=== PATIENT | male | born 1950 | race Caucasian/White ===

== ENCOUNTER → 2018-08-09 | Outpatient (CLI) | payer MEDICARE, BC ==
[~2018-08-09] MED LIST: ACULAR LS 5 ML5 ML OP; ASPIRIN 32325 MG/TAB PO; BYSTOLIC2.5 MG PO; OCUFLOX 5 ML5 ML OP; PRED FORTE 1 ML1 ML OP
== END ==
LOC: COL.RAD 08:15
DX: Z13.6 Encounter for screening for cardiovascular disorders (principal); I70.0 Atherosclerosis of aorta; Q25.46 Tortuous aortic arch; Z87.891 Personal history of nicotine dependence

== ENCOUNTER 2018-11-04 17:38 | Inpatient (IN) | payer MEDICARE, BC ==
[~2018-11-04] VITALS: Ht 213.4 cm; Wt 76.7 kg
[2018-11-04] VITALS (120 sets, daily range): BP systolic 131–142; BP diastolic 74–79; PULSE 77–78; TEMP 98.9–99; O2SAT 89–99
[2018-11-04 19:25] LABS: BASO % 0.3 % (0.0-2.0); EOS # 0.1 (0.0-0.7); EOS % 0.7 % (0-4.0); GRAN # 8.4 (1.4-6.5); GRAN % 77.6 % (42.2-75.2); HEMATOCRIT 39.5 % (42.0-52.0); HEMOGLOBIN 14.2 g/dl (13.5-18.0); LYMPH # 1.4 (1.2-3.4); LYMPH % 12.5 % (20.0-51.0); MEAN CELL VOLUME 101 fl (80.0-100.0); MEAN CORPUSCULAR HEMOGLOBIN 36 pg (27.0-31.0); MEAN CORPUSCULAR HGB CONC 36 g/dl (33.0-37.0); MEAN PLATELET VOLUME 8.2 fl (7.4-10.4); MONO # 0.9 (0.1-0.6); MONO % 8.6 % (1.7-9.3); PLATELET COUNT 247 K/mm3 (130-400); RED BLOOD COUNT 3.93 M/mm3 (4.20-5.60); REDCELL DISTRIBUTION WIDTH-CV 11.6 % (11.5-14.5)
[2018-11-04 19:31] LABS: BILIRUBIN,TOTAL 0.4 mg/dL (0.0-1.0); CALCIUM 8.7 mg/dL (8.4-10.2); CREATININE, serum 0.94 mg/dL (0.66-1.25); MAGNESIUM 1.9 mg/dL (1.6-2.3); PHOSPHOROUS 3.2 mg/dL (2.5-4.5); POTASSIUM 3.2 mmol/L (3.4-5.0); TOTAL PROTEIN 6.6 gm/dL (6.4-8.2)
[2018-11-04 20:02] LABS: THYROID STIMULATING HORMONE 0.947 uIU/mL (0.465-4.680)
[2018-11-04 20:29] LABS: TROPONIN-I < 0.012 ng/mL (0.000-0.034)
[2018-11-04 21:05] LABS: ARTERIAL BLD GAS O2 SATURATION 93.4 % (92-100); ARTERIAL BLD GAS TCO2 CT 25.3; ARTERIAL BLOOD GAS BASE EXCESS 1.9 (-2-2); ARTERIAL BLOOD GAS HCO3 24.4 meq/L (22-26); ARTERIAL BLOOD GAS PCO2 32.1 mmHg (35-45); ARTERIAL BLOOD GAS PO2 69.4 mmHg (80-100)
[2018-11-04 21:17] LABS: COLLECTION METHOD CLEAN CATCH
[2018-11-04 21:33] LABS: PROTHROMBIN TIME 11.5 SECONDS (9.7-12.8)
[2018-11-04 21:34] LABS: PH 6 (5-8); SQUAMOUS EPITHELIAL None Seen /hpf; URINE APPEARANCE Clear; URINE BACTERIA None Seen /hpf; URINE BILIRUBIN Negative (NEGATIVE); URINE BLOOD Negative (NEGATIVE); URINE COLOR Straw; URINE GLUCOSE Negative (NEGATIVE); URINE KETONE Negative (NEGATIVE); URINE LEUKOCYTE ESTERASE Negative (NEGATIVE); URINE NITRATE Negative (NEGATIVE); URINE PROTEIN(semi-quant) Negative (NEGATIVE); URINE RBC 0-2 /hpf; URINE UROBILINOGEN Negative (NEGATIVE)
[2018-11-04 21:36] LABS: PARTIAL THROMBOPLASTIN TIME 30.7 SECONDS (26.0-37.0)
[2018-11-04 21:56] LABS: TRICYCLIC ANTIDEPRESS URINE NEGATIVE
[2018-11-04] MEDS ORDERED: NORVASC 10MG10 MG PO (22:49)
[2018-11-04] MEDS ORDERED: ZESTORETIC 25 M1 TAB PO (22:50)
[2018-11-04] MEDS ORDERED: ALEVE 220MG220 MG PO (22:51)
[2018-11-05] VITALS (369 sets, daily range): BP systolic 131–141; BP diastolic 64–78; PULSE 64–92; TEMP 97.6–98.8; O2SAT 89–100
[2018-11-05 01:47] LABS: CALCIUM 8.9 mg/dL (8.4-10.2); CREATININE, serum 0.75 mg/dL (0.66-1.25); POTASSIUM 4.2 mmol/L (3.4-5.0)
[2018-11-05 05:26] LABS: BASO % 0.3 % (0.0-2.0); EOS # 0.1 (0.0-0.7); EOS % 0.9 % (0-4.0); GRAN # 6.3 (1.4-6.5); GRAN % 71.3 % (42.2-75.2); HEMOGLOBIN 14.3 g/dl (13.5-18.0); LYMPH # 1.5 (1.2-3.4); LYMPH % 16.8 % (20.0-51.0); MEAN CELL VOLUME 101 fl (80.0-100.0); MEAN CORPUSCULAR HEMOGLOBIN 36 pg (27.0-31.0); MEAN CORPUSCULAR HGB CONC 36 g/dl (33.0-37.0); MEAN PLATELET VOLUME 8.4 fl (7.4-10.4); MONO # 0.9 (0.1-0.6); MONO % 10.5 % (1.7-9.3); PLATELET COUNT 237 K/mm3 (130-400); RED BLOOD COUNT 3.98 M/mm3 (4.20-5.60); REDCELL DISTRIBUTION WIDTH-CV 11.6 % (11.5-14.5)
[2018-11-05 05:39] LABS: ALBUMIN 3.9 gm/dL (3.5-5.0); BILIRUBIN,TOTAL 0.8 mg/dL (0.0-1.0); CALCIUM 9.1 mg/dL (8.4-10.2); CREATININE, serum 0.7 mg/dL (0.66-1.25); POTASSIUM 3.6 mmol/L (3.4-5.0); TOTAL PROTEIN 6.6 gm/dL (6.4-8.2)
[2018-11-05 14:20] LABS: FOLATE (FOLIC ACID) >20.0 ng/mL (7.0-31.4)
[2018-11-06 00:25] VITALS: BP 126/71; PULSE 87; TEMP 98.3
[2018-11-06 01:34] VITALS: BP 121/69; PULSE 85; TEMP 97.6
[2018-11-06 04:15] VITALS: BP 134/68; PULSE 68; TEMP 98.2
[2018-11-06 06:00] VITALS: BP 112/67; PULSE 84; TEMP 98.5
[2018-11-06 06:40] LABS: CALCIUM 8.9 mg/dL (8.4-10.2); CREATININE, serum 0.72 mg/dL (0.66-1.25); POTASSIUM 4.1 mmol/L (3.4-5.0)
[2018-11-06 07:45] VITALS: BP 137/72; PULSE 90; TEMP 98.3
[2018-11-06 10:59] VITALS: BP 126/69; PULSE 78; TEMP 98.1
[2018-11-06] MEDS ORDERED: B-121000 MCG PO (14:09)
[2018-11-06] MEDS ORDERED: ZESTRIL 20MG TA20 MG PO (14:09)
[2018-11-06] MEDS ORDERED: FOLIC ACID 11 MG/TA1 PO (14:09)
[2018-11-06] MEDS ORDERED: NATURE'S BLEND100 M2 PO (14:10)
[2018-11-08 12:07] LABS: VITAMIN B1 108 nmol/L (70-180)
== END 2018-11-06 17:09 | disposition home or self-care (01) | DRG 640 ==
LOC: IMCU 17:38 → ICU 18:23 → MEDICAL 11-05 10:45
PROVIDERS: Nurse Practitioner Family
DX: E87.1 Hypo-osmolality and hyponatremia (principal); J96.01 Acute respiratory failure with hypoxia; I10 Essential (primary) hypertension; J44.9 Chronic obstructive pulmonary disease, unspecified; F17.210 Nicotine dependence, cigarettes, uncomplicated; E87.6 Hypokalemia; F10.10 Alcohol abuse, uncomplicated
CPT/HCPCS: 99223-AI; 99232-AI; J1650; J3411; J7030

== ENCOUNTER 2023-09-17 18:56 | Observation (INO) | payer MEDICARE, OTHER ==
[~2023-09-17] VITALS: Ht 182.9 cm; Wt 70.0 kg
[~2023-09-17 18:56] MED LIST changes: +ALEVE 220MG220 MG PO; +ASPIRIN E.C. 8181 MG PO; +B-121000 MCG PO; +DESYREL 50MG50 MG PO; +FOLIC ACID 11 MG/TA1 PO; +IBU600 MG PO; +LIPITOR20 MG PO; +NATURE'S BLEND100 M2 PO; +NORVASC 10MG10 MG PO; +PERCOCET 325 MG1 TA2 PO; +RT Albuterol HFA MDI IH; +THE MEDICINE S200 M2 PO; +TYLENOL 500MG500 MG PO; +ULTRAM 50MG TAB50 MG PO; +VTAMINC250TA; +ZESTORETIC 25 M1 TAB PO; +ZESTRIL 20MG TA20 MG PO
[2023-09-17] MEDS ORDERED: PRINIVIL10 MG PO (21:21)
[2023-09-17] MEDS ORDERED: ZOLOFT 50MG50 MG PO (21:22)
[2023-09-17] MEDS ORDERED: MELATONIN5 M1 SL (21:22)
[2023-09-17] MEDS ORDERED: FOLIC ACID 11 MG/TA1 PO (21:25)
[2023-09-17] MEDS ORDERED: VTAMINC250TA (21:26)
[2023-09-17 21:28] LABS: HEMATOCRIT 39.3 % (42.0-52.0); HEMOGLOBIN 12.8 g/dl (13.5-18.0); MEAN CELL VOLUME 100 fl (80.0-100.0); MEAN CORPUSCULAR HEMOGLOBIN 33 pg (27-31); MEAN CORPUSCULAR HGB CONC 33 g/dl (33.0-37.0); MEAN PLATELET VOLUME 9.1 fl (7.4-10.4); PLATELET COUNT 264 K/mm3 (130-400); RED BLOOD COUNT 3.92 M/mm3 (4.20-5.60); REDCELL DISTRIBUTION WIDTH-CV 12.8 % (11.5-14.5)
[2023-09-17 21:40] LABS: BAND 3 % (0-10); LYMPHOCYTE 11 % (20.0-51.0); NEUTROPHILS 77 % (42.0-75.2)
[2023-09-17 21:41] LABS: HYPOCHROMIA 1+; PLATELET ESTIMATE NORMAL (NORMAL)
--- NOTE | 2023-09-17 21:45 | NUR ---
Patient arrived to room 325 via stretcher. Transferred to bed x4 assist. Skin assessment complete and WNL. Patient c/o pain to left chest/rib area. VS currently WNL. O2@1L/NC. Patient is not fully oriented but knows where he is and name. INT to left wrist flushes without difficulty. Unable to answer some questions. Patient states he wears glasses, hearing aids and dentures but did not bring them with him. Provided with a sandwich box. Ate 70%. MONTSERRAT Ratliff at bedside. Will monitor.
[2023-09-17 21:51] LABS: ALBUMIN 3.9 gm/dL (3.4-4.8); CALCIUM 9.1 mg/dL (8.4-10.2); CREATININE, serum 1.14 mg/dL (0.72-1.25); POTASSIUM 3.5 mmol/L (3.5-4.5); TOTAL PROTEIN 6.4 gm/dL (6.2-8.1)
[2023-09-17 21:53] VITALS: BP 149/65; PULSE 80; TEMP 98.5
[2023-09-17 22:00] LABS: BILIRUBIN,TOTAL 0.7 mg/dL (0.2-1.2)
--- NOTE | 2023-09-17 23:00 | NUR ---
Patient moaning out in pain. Has already taken tylenol-toradol given per dr order. Also placed lidocaine patch to right lower back.
[2023-09-18] VITALS (7 sets, daily range): BP systolic 116–177; BP diastolic 59–92; PULSE 66–77; TEMP 97.5–98.7
--- NOTE | 2023-09-18 00:29 | NUR ---
Patient resting eyes closed. No s/s of pain noted.
--- NOTE | 2023-09-18 01:12 | NUR ---
Repositioned in bed with two assist. O2 continues at 1L/NC. Will monitor.
--- NOTE | 2023-09-18 02:00 | NUR ---
Patient hollering out in pain. Received tylenol and toradol already with not much pain relief. Chambers given per dr order. Will monitor.
--- NOTE | 2023-09-18 03:00 | NUR ---
Patient attempted to void again at this time. Unable to. Bladder scanned- <130 currently. Will continue to monitonr.
--- NOTE | 2023-09-18 05:27 | NUR ---
Patient crying out in pain. This nurse to room-tried to give toradol IV per dr order but patient swatted at this nurse and states he doesnt want any of it. Wasted at this time. WIll continue to monitor.
[2023-09-18 05:44] LABS: CALCIUM 8.7 mg/dL (8.4-10.2); CREATININE, serum 1.25 mg/dL (0.72-1.25); POTASSIUM 3.5 mmol/L (3.5-4.5)
[2023-09-18 05:52] LABS: HEMOGLOBIN 11.6 g/dl (13.5-18.0); MEAN CELL VOLUME 98 fl (80.0-100.0); MEAN CORPUSCULAR HEMOGLOBIN 32 pg (27-31); MEAN CORPUSCULAR HGB CONC 33 g/dl (33.0-37.0); MEAN PLATELET VOLUME 9.4 fl (7.4-10.4); PLATELET COUNT 250 K/mm3 (130-400); RED BLOOD COUNT 3.59 M/mm3 (4.20-5.60); REDCELL DISTRIBUTION WIDTH-CV 12.7 % (11.5-14.5)
[2023-09-18 05:55] LABS: HEMATOCRIT 35.2 % (42.0-52.0)
[2023-09-18 06:12] LABS: EOSINOPHIL 3 % (0-4); HYPOCHROMIA 1+; LYMPHOCYTE 11 % (20.0-51.0); NEUTROPHILS 76 % (42.0-75.2); PLATELET ESTIMATE NORMAL (NORMAL)
--- NOTE | 2023-09-18 07:00 | NUR ---
PT RESTING IN CHAIR ALERT BUT NOT ORIENTED. PT CONFUSED, RAMBALING, AND UNABLE TO ANSWER QUESTIONS AT TIMES. PT UNABLE TO REPORT PAIN LEVEL, PT APPEAR COMFORTABLE. NO NEEDS AT THIS TIME. WILL CONTINUE TO MONITOR.
[2023-09-18 09:15] LABS: PH 5.5 (5.0-8.5); URINE APPEARANCE Clear (CLEAR/HAZY); URINE COLOR Yellow (YELLOW); URINE GLUCOSE Negative (NEGATIVE); URINE KETONE TRACE (NEGATIVE); URINE PROTEIN(semi-quant) 2+ (NEGATIVE); URINE UROBILINOGEN 0.2 E.U/dL (0.2-1.0)
[2023-09-18 09:16] LABS: SQUAMOUS EPITHELIAL 0-2 /hpf (0-10); URINE BLOOD Negative (NEGATIVE); URINE NITRATE Negative (NEGATIVE)
[2023-09-18 09:17] LABS: COLLECTION METHOD CLEAN CATCH
--- NOTE | 2023-09-18 10:15 | NUR ---
DR BRIDGES CALLED TO DISCUSS PTS REQUEST FOR NICOTINE PATCH, VERBAL ORDERS PROVIDED.
--- NOTE | 2023-09-18 15:11 | NUR ---
Cable Dispatcher met with patient and his , Theresa (ph#[phone]) to discuss discharge planning. Patient lives in [place] with his and sees Dr. Prince for primary care. Patient uses [facility] for medications. Patient has a cane, walker and wheelchair at home however Theresa stated he rarely uses them. Theresa advised he mostly uses the cane when he uses anything. Patient does not have home oxygen set up, however is currently requiring it. Theresa reported patient has been struggling with ADLS at home and that he just last week "graduated" from home hospice with [facility]. Theresa still has a private inquiry agent from [employer] come out once a week to help with a bath and shave. SW discussed PT/OT recommendation for SNF vs Home Health. SW also discussed with Theresa that at this time, patient is observation status and would not qualify to go to SNF under Medicare, meaning that he would either be private pay or they could pursue placement Medicaid pending. At this time, Theresa is not interested in applying for Medicaid or private paying. Theresa did remark she has the Medicaid application at home. At one point in the intake, Theresa commented that she sometimes feels she cannot manage patient at home. SW did encourage Theresa that if it gets to the point where patient cannot live at home anymore, applying for Medicaid would be something to consider as it is a payer source for LTC. Theresa verbalized understanding but is not ready to do this. Theresa is home with patient at all times except when she is at dialysis, Sunday//Sunday [id number]. FCO discussed adding on some private duty services to assist with supervision during these times. Theresa advised she may consider this but that he mainly sleeps during this time. FCO provided Medicare.gov list of agencies and Theresa selected [facility]. FCO faxed referral to Shawn at [facility]. Patient has DPOA-HC in EMR designating his , Theresa and daughter, Sharmaine. FCO contacted Sharmaine to give the above update. Sharmaine is in agreement with plan for home with HH. Discharge Plan: Home with HH
--- NOTE | 2023-09-18 19:43 | NUR ---
Patient sitting up in chair. Assessment complete. Alert but confused/possibly halucinating-sees bugs in the air and trying to catch them. Patient sounds moist but unable to clear secretions. Lungs are diminished with occasional exp wheezing noted. TELE reporting SR. VS stable. Currently on room air with adequate O2 saturations. Scheduled tylenol given. Patient rating pain 7/10 on pain scale to right side/flank-lidocaine patch also placed. INT to left wrist flushes without difficulty. Plan of care discussed for this shift to include meds/pain control/calling for questions/concerns. Verbalizes understanding. Call light in reach/bed alarm on. Will monitor.
--- NOTE | 2023-09-18 22:04 | NUR ---
Patient very confused this shift with hallucinations. Picking at air stating there are bugs flying around. Unable to do IS due to not comprehended technique. Did TCDB. Up to bedisde commode several times-very unsteady with walker/gait belt/1-2 assist.
--- NOTE | 2023-09-18 23:51 | NUR ---
Patient has been very restless at the beginning shift. Climbing in and out of bed setting off alarm as well as talking to people and things not present. Also picking at air. Patient finally resting with eyes closed-audible snoring. PCT informed to hold off on vitals until patient wakes. Will monitor.
--- NOTE | 2023-09-19 00:37 | NUR ---
Patient called out to use the bathroom. Assisted to bedside commode-two heavy assist with walker/gait belt. Voided without difficulty. VS taken. Toradol given for pain.
[2023-09-19 00:39] VITALS: BP 140/68; PULSE 72; TEMP 98
--- NOTE | 2023-09-19 00:46 | NUR ---
Spoke with healthcare administration internship pharmacist Claudy about both Motrin and Toradol being ordered at the same time. Okay to give both as ordered due to low dosing.
[2023-09-19 00:49] VITALS: BP_SYST 140
--- NOTE | 2023-09-19 05:52 | NUR ---
Patient had an uneventful night. Did not sleep much but was pleasent and talkative. Received toradol/motrin/tylneol for pain. Encouraged to cough/deep breath. Has a moist wet cough that is not productive. CUrrently resting in bed with no s/s of distress noted. Will monitor.
--- NOTE | 2023-09-19 06:10 | NUR ---
Patient is finally resting eyes closed/no s/s of distress noted. Instructed PCT to not wake patient as vitals were done at 0245.
[2023-09-19 06:11] VITALS: BP_SYST 140
[2023-09-19 08:30] VITALS: BP 119/59; PULSE 78; TEMP 97.6
[2023-09-19] MEDS ORDERED: BLUE-EMU LIDOC1 EACH TP (08:30)
[2023-09-19] MEDS ORDERED: TYLENOL 325MG325 MG PO ×2 (08:31)
[2023-09-19] MEDS ORDERED: ADVIL200 MG PO (08:31)
--- NOTE | 2023-09-19 08:35 | NUR ---
PT LAYING IN BED, ALERT, NOT ORIENTED AT ALL. VERY CONFUSED, HAVING HALLUCINATIONS. RATES PAIN 10/10 IN THE RIBS. LEGS ARE WEAK. ASSESSED AND GAVE MORNING MEDS. CALL LIGHT WITHIN REACH.
[2023-09-19 08:37] VITALS: BP_SYST 140
[2023-09-19] MEDS ORDERED: OXYGEN NASAL.CANN (09:36)
[2023-09-19 11:28] VITALS: BP 103/57; PULSE 85; TEMP 97.9
--- NOTE | 2023-09-19 13:20 | NUR ---
PT HAS DISCHARGE ORDERS. TOOK OUT IV. WENT OVER DISCHARGE PAPERWORK WITH PT AND . ESCORTED PT OUT WITH AND PCT.
--- NOTE | 2023-09-19 15:44 | NUR ---
Personal Service Representative was notified that patient is ready to be discharged today. Patient was assessed by RT and he will require home oxygen. FCO spoke with nursing and RT about concerns for patient's ability to safely manage the oxygen at home. FCO contacted patient's daughter, Sharmaine and reviewed the above concern. Sharmaine advised patient's , Theresa wears oxygen at night and already manages her oxygen set up at home so this was not a great concern to her. Sharmaine advised she still plans for patient to return home. FCO met with patient's , Theresa at bedside and she advised she uses [facility] so that is where SW can order patient's oxygen through. FCO asked Theresa if she still feels comfortable with discharge home based on additional oxygen needs. FCO offered private pay placement or Medicaid pending placement and Theresa stated she still prefers to take patient home. FCO contacted Shawn at [facility] who accepts referral. FCO faxed discharge orders. FCO then contacted [facility] and gave referral and order for home oxygen. Supplies were delivered to patient's room prior to discharge. Discharge Plan: Home with
[2023-09-20] MEDS ORDERED: ROXICODONE 55 MG/TAB (14:08)
[2023-09-24] MEDS ORDERED: TYLENOL 325MG325 MG PO (13:19)
== END 2023-09-19 13:23 | disposition home or self-care (01) ==
LOC: COL.ER 18:56 → SURG 20:46
PROVIDERS: Physician Assistant; ADMIT Internal Medicine
DX: J96.01 Acute respiratory failure with hypoxia (principal); S22.31XA Fracture of one rib, right side, initial encounter for closed fracture; I10 Essential (primary) hypertension; J44.9 Chronic obstructive pulmonary disease, unspecified; R29.6 Repeated falls; F03.918 Unspecified dementia, unspecified severity, with other behavioral disturbance; Z79.899 Other long term (current) drug therapy
CPT/HCPCS: G0378; J1885

== ENCOUNTER 2024-01-28 19:58 | Inpatient (IN) | payer MEDICARE ==
[~2024-01-28] VITALS: Ht 182.9 cm; Wt 65.9 kg
[~2024-01-28 19:58] MED LIST changes: +ADVIL200 MG PO; +BLUE-EMU LIDOC1 EACH TP; +MELATONIN5 M1 SL; +OXYGEN NASAL.CANN; +PRINIVIL10 MG PO; +ROXICODONE 55 MG/TAB; +TYLENOL 325MG325 MG PO; +VITAMIN C500 MG PO; +ZOLOFT 50MG50 MG PO
[2024-01-28] MEDS ORDERED: NS 1,000 ML IV ONE (20:15)
[2024-01-28 20:21] LABS: HEMOGLOBIN 12.6 g/dl (13.5-18.0); MEAN CELL VOLUME 96 fl (80.0-100.0); MEAN CORPUSCULAR HEMOGLOBIN 33 pg (27-31); MEAN CORPUSCULAR HGB CONC 34 g/dl (33.0-37.0); PLATELET COUNT 207 K/mm3 (130-400); RED BLOOD COUNT 3.85 M/mm3 (4.20-5.60); REDCELL DISTRIBUTION WIDTH-CV 12.8 % (11.5-14.5)
[2024-01-28 20:34] LABS: BAND 6 % (0-10); LYMPHOCYTE 3 % (20.0-51.0); NEUTROPHILS 79 % (42.0-75.2)
[2024-01-28 20:35] LABS: PLATELET ESTIMATE NORMAL (NORMAL)
[2024-01-28 20:36] LABS: ALBUMIN 3.4 gm/dL (3.4-4.8); BILIRUBIN,TOTAL 0.4 mg/dL (0.2-1.2); CALCIUM 8.8 mg/dL (8.4-10.2); CREATININE, serum 1.17 mg/dL (0.72-1.25); POTASSIUM 3.6 mmol/L (3.5-4.5); TOTAL PROTEIN 6.3 gm/dL (6.2-8.1)
[2024-01-28] MEDS ORDERED: cefTRIAXone 2 G in Water For Injection,Sterile 20 ML IV ONE (21:30)
[2024-01-28] MEDS ORDERED: Ondansetron 4 MG/2 ML VIAL IV PRN (22:00)
[2024-01-28] MEDS ORDERED: Acetaminophen 325 MG TAB PO PRN (22:00)
[2024-01-28] MEDS ORDERED: Albuterol/Ipratropium 3 MG-0.5 MG/3 ML Neb Soln IH PRN (22:00)
[2024-01-28] MEDS ORDERED: Oseltamivir 30 MG CAP PO SCH (22:04)
[2024-01-28] MEDS ORDERED: Azithromycin 500 MG in NS 250 ML IV SCH (22:27)
[2024-01-28] MEDS ORDERED: NS 1,000 ML IV SCH (22:45)
[2024-01-28 22:49] VITALS: BP 128/79; PULSE 66; TEMP 98.2
--- NOTE | 2024-01-28 23:15 | NUR ---
PT ARRIVED TO ROOM 326 FROM ED AROUND 2314 FOR PNEUMONITIS & FLU A, AND WAS PLACED ON DROPLET PRECAUTIONS. TRANSFERED PT TO BED VIA SLIDEBOARD. PT ALERT BUT CONFUSED, WAS REPORTED PT IS CONFUSED AT BASELINE. VSS ON 3L/NC. INT TO LEFT AC PATENT & IVF STARTED PER MAR. PT DENYING PAIN OR N/V. STATES HE DOES HAVE SOME SOA, BUT REPORTS O2 & SITTING UP HELP A LOT. PT DENYING FURTHER NEEDS. FALL PRECAUTIONS IN PLACE & CALL LIGHT IN REACH. COMPLETED MED REC & INTAKE MUCH POSSIBLE, PT IS POOR HISTORIAN. PT STATES HIS WILL BE HERE TOMMORROW & WILL BE ABLE TO ANSWER SOME QUESTIONS
[2024-01-28 23:49] VITALS: BP_SYST 128
[2024-01-29] VITALS (12 sets, daily range): BP systolic 117–165; BP diastolic 55–70; PULSE 63–74; TEMP 98–99
--- NOTE | 2024-01-29 01:36 | NUR ---
pt sitting up in recliner watching tv. pt reports not being able to sleep. denying further needs. call light in reach
--- NOTE | 2024-01-29 06:15 | NUR ---
PT RESTING IN BED THIS MORNING WITH UNLABORED RESP. DENIES NEEDS. FALL PRECAUTIONS IN PLACE & CALL LIGHT IN REACH
[2024-01-29 08:04] LABS: BASO % 0.1 % (0.0-2.0); GRAN % 75.1 % (42.2-75.2); HEMOGLOBIN 11.6 g/dl (13.5-18.0); LYMPH # 1.4 K/mm3 (1.2-3.4); MEAN CELL VOLUME 97 fl (80.0-100.0); MEAN CORPUSCULAR HEMOGLOBIN 32 pg (27-31); MEAN CORPUSCULAR HGB CONC 33 g/dl (33.0-37.0); MEAN PLATELET VOLUME 9.9 fl (7.4-10.4); MONO # 0.9 K/mm3 (0.1-0.6); MONO % 9.5 % (1.7-9.3); PLATELET COUNT 181 K/mm3 (130-400); RED BLOOD COUNT 3.61 M/mm3 (4.20-5.60); REDCELL DISTRIBUTION WIDTH-CV 12.7 % (11.5-14.5)
[2024-01-29 08:10] LABS: HEMATOCRIT 35.1 % (42.0-52.0)
[2024-01-29 08:52] LABS: CALCIUM 8.1 mg/dL (8.4-10.2); CREATININE, serum 0.81 mg/dL (0.72-1.25); MAGNESIUM 1.9 mg/dL (1.6-2.6)
[2024-01-29] MEDS ORDERED: Doxycycline Monohydrate 100 MG CAP PO SCH (09:00)
[2024-01-29] MEDS ORDERED: Sennosides/Docusate 8.6-50 MG TAB PO SCH (09:00)
[2024-01-29 09:01] LABS: PH 5.5 (5.0-8.5); URINE APPEARANCE CLEAR (CLEAR/HAZY); URINE BLOOD TRACE (NEGATIVE); URINE COLOR YELLOW (YELLOW); URINE GLUCOSE NEGATIVE (NEGATIVE); URINE KETONE TRACE (NEGATIVE); URINE NITRATE NEGATIVE (NEGATIVE); URINE PROTEIN(semi-quant) TRACE (NEGATIVE)
[2024-01-29 09:02] LABS: POTASSIUM 2.9 mmol/L (3.5-4.5)
[2024-01-29 09:04] LABS: COLLECTION METHOD CLEAN CATCH
--- NOTE | 2024-01-29 09:08 | NUR ---
CRITICAL POTASSIUM OF 2.[address] ARAIZA, VERBAL ORDERS FOR POTASSIUM PROTOCOL.
[2024-01-29 09:12] LABS: THYROID STIMULATING HORMONE 0.258 uIU/mL (0.350-4.940)
[2024-01-29] MEDS ORDERED: *Potassium Replacement Protocol MC SCH (09:15)
[2024-01-29] MEDS ORDERED: Potassium Bicarbonate/Citrate 20 MEQ Effervescent TAB PO SCH (09:15)
--- NOTE | 2024-01-29 10:00 | NUR ---
PT RESTING IN BED A/O X3, LIMITED MOVEMENT IN BED, USING URINAL IN BED DUE TO WEAKNESS. THIS NURSE ENCOURAGING FLUIDS, PT ON 3L O2 NC, DENTURES OBTAINED FROM FAMILY. WET COUGH BUT NO SPUTUM OBTAINED. WILL CONTINUE TO MONITOR.
--- NOTE | 2024-01-29 13:00 | NUR ---
lithopone mill worker completed intake over the phone with , Sheri [phone] due to pt having isolation orders and dementia at baseline with worsening signs. SW spoke with Sheri who confirms pt and her live together in [place]. She states pt sees Dr. Prince and obtains medications from [facility] with no difficulties. She states she is also DPOA-HC and SW verified this is on file. She informed SW she has private duty come into the home once a week to groom pt and shower him. She reports pt has a cane, regular walker, and FWW but does not utilize them. SW discussed PT/OT reccomendations of HH vs SNF. informs SW that pt has had both HH and SNF. She states patient was "angry, wanted to be home, and was scared since he doesn't understand." SW verbalized understanding regarding the concerns. states they have had [facility] twice and would be more apt to have them. SW inquired if she could send the information to [facility] and she confirmed. She inquired about discharge timeline and SW advised the main [facility] did not confirm any discharge intention. FCO faxed referral to [place] with [facility]. SW informed FCO Herman pt still needs Medicare.gov list presented per regulation. Discharge Plan: Home with [facility] pending
--- NOTE | 2024-01-29 14:34 | NUR ---
garage worker provided Medicare.gov list of agencies to KEENAN [place]ley to provide to pt. SW noted patient's chose [facility] as they have utilized them before. Discharge Plan: Home with [facility] tbd
--- NOTE | 2024-01-29 20:00 | NUR ---
PT LAYING IN BED WATCHING TV. A&O X2. VSS ON 1L/NC. PT DENYING PAIN OR N/V. NS @ 75 INFUSING TO LEFT FOREARM. PT HAD SMALL LOOSE BM. PT DENIES OTHER NEEDS AT THIS TIME. FALL PRECAUTIONS IN PLACE & CALL LIGHT IN REACH
[2024-01-29] MEDS ORDERED: cefTRIAXone 1 G in Water For Injection,Sterile 10 ML IV SCH (21:00)
[2024-01-30] VITALS (13 sets, daily range): BP systolic 139–167; BP diastolic 62–80; PULSE 62–76; TEMP 97.8–99
--- NOTE | 2024-01-30 01:40 | NUR ---
PT RIPPING OFF TELE & IV TO LEFT FOREARM. CARBON CAPTURE POWER PLANT OPERATOR PLACED NEW IV TO RIGHT FOREARM
--- NOTE | 2024-01-30 04:45 | NUR ---
PT UP TO BSC WITH X2 ASSIST & HAD MEDIUM WATERY BM. PT BACK IN BED & HAS NOT SLEPT THIS SHIFT. DENIES PAIN EXCEPT "BACK PAIN THAT IS ALWAYS THERE", DENIES TYLENOL. DENIES FURTHER NEEDS. CALL LIGHT IN REACH & FALL PRECAUTIONS IN PLACE
--- NOTE | 2024-01-30 06:31 | NUR ---
PT NOW RESTING IN BED WITH UNLABORED RESP. GIVEN PRN TYLENOL FOR BACK PAIN. PT DENYING OTHER NEEDS. FALL PRECAUTIONS IN PLACE & CALL LIGHT IN REACH
[2024-01-30 06:47] LABS: BASO % 0.1 % (0.0-2.0); GRAN # 7.3 K/mm3 (1.4-6.5); GRAN % 77.9 % (42.2-75.2); HEMOGLOBIN 11.1 g/dl (13.5-18.0); LYMPH # 1.4 K/mm3 (1.2-3.4); LYMPH % 14.7 % (20.0-51.0); MEAN CELL VOLUME 95 fl (80.0-100.0); MEAN CORPUSCULAR HEMOGLOBIN 32 pg (27-31); MEAN CORPUSCULAR HGB CONC 34 g/dl (33.0-37.0); MEAN PLATELET VOLUME 9.7 fl (7.4-10.4); MONO # 0.7 K/mm3 (0.1-0.6); PLATELET COUNT 179 K/mm3 (130-400); RED BLOOD COUNT 3.44 M/mm3 (4.20-5.60); REDCELL DISTRIBUTION WIDTH-CV 12.5 % (11.5-14.5)
[2024-01-30 06:49] LABS: HEMATOCRIT 32.6 % (42.0-52.0)
[2024-01-30 07:22] LABS: CALCIUM 7.9 mg/dL (8.4-10.2); CREATININE, serum 0.72 mg/dL (0.72-1.25)
[2024-01-30 07:27] LABS: POTASSIUM 2.9 mmol/L (3.5-4.5)
--- NOTE | 2024-01-30 07:32 | NUR ---
CRITICAL POTASSIUM OF 2.9 REPORTED TO CORY MARIANO. NO NEW ORDERS. WILL FOLLOW POTASSIUM PROTOCOL.
[2024-01-30] MEDS ORDERED: Potassium Bicarbonate/Citrate 20 MEQ Effervescent TAB PO SCH (07:45)
[2024-01-30] MEDS ORDERED: NS & 40 mEq KCl 1,000 ML IV SCH (07:45)
--- NOTE | 2024-01-30 08:50 | NUR ---
PT RESTING IN BED WITH NO PAIN AT THIS TIME. PT USING URINAL IN BED, A/O X2, AND EATING BREAKFAST. WET COUGH STILL PRESENT. NO NEEDS AT THIS TIME. WILL CONTINUE TO MONITOR.
--- NOTE | 2024-01-30 13:16 | NUR ---
life skills worker secure emailed updates to [facility]. Discharge plan: Home with [facility]
--- NOTE | 2024-01-30 17:00 | NUR ---
sheet metal worker supervisor met with the patient's nurse whom reported patient and patient's wanted to know the plan for discharge. FCO expressed the expressed yesterday to FCO [place]ida patient wanted to return home with home health. FCO contacted patient's , Theresa, to confirm the discharge plan. Theresa reports the plan is for patient to return home when medically ready with home health through [facility]. FCO notified patient's nurse. Discharge plan: Home with [facility]
--- NOTE | 2024-01-30 20:00 | NUR ---
PT LAYING IN BED WATCHING TV. A&O X3. ON 2L/NC. GIVEN PRN TYLENOL FOR CHRONIC BACK PAIN. INT TO RIGHT FOREARM PATENT. PT DENIES NEEDS AT THIS TIME. FALL PRECAUTIONS IN PLACE & CALL LIGHT IN REACH
[2024-01-31] VITALS (9 sets, daily range): BP systolic 158–178; BP diastolic 66–95; PULSE 61–83; TEMP 97.5–98.5
--- NOTE | 2024-01-31 06:00 | NUR ---
PT LAYING IN BED WATCHING TV. DENIES NEEDS THIS MORNING. CALL LIGHT IN REACH & FALL PRECAUTIONS IN PLACE
[2024-01-31 06:44] LABS: BASO % 0.1 % (0.0-2.0); EOS % 0.3 % (0.0-4.0); GRAN # 4.2 K/mm3 (1.4-6.5); HEMOGLOBIN 11.6 g/dl (13.5-18.0); LYMPH # 2.2 K/mm3 (1.2-3.4); LYMPH % 30.8 % (20.0-51.0); MEAN CELL VOLUME 94 fl (80.0-100.0); MEAN CORPUSCULAR HEMOGLOBIN 32 pg (27-31); MEAN CORPUSCULAR HGB CONC 34 g/dl (33.0-37.0); MEAN PLATELET VOLUME 9.6 fl (7.4-10.4); MONO # 0.6 K/mm3 (0.1-0.6); MONO % 8.5 % (1.7-9.3); PLATELET COUNT 202 K/mm3 (130-400); RED BLOOD COUNT 3.59 M/mm3 (4.20-5.60); REDCELL DISTRIBUTION WIDTH-CV 12.3 % (11.5-14.5)
[2024-01-31 06:55] LABS: HEMATOCRIT 33.8 % (42.0-52.0)
[2024-01-31 07:14] LABS: CALCIUM 8.4 mg/dL (8.4-10.2); CREATININE, serum 0.69 mg/dL (0.72-1.25); POTASSIUM 3.2 mmol/L (3.5-4.5)
--- NOTE | 2024-01-31 07:54 | NUR ---
PATIENT'S BLOOD PRESSURE ELEVATED THIS MORNING, 171/78. DR ROCHA NOTIFIED.
[2024-01-31] MEDS ORDERED: Potassium Bicarbonate/Citrate 20 MEQ Effervescent TAB PO SCH (08:00)
--- NOTE | 2024-01-31 08:00 | NUR ---
Pt sitting up in bed wiht breakfast tray. Pt is oriented to self and month. Pt reoriented. HR and SpO2 are stable. BP is elevated with systolic in 170s. Pt is tachypneic and shallow breathing. Rhonchi in Right lung (all lobes) and Left Lower lobe. Expiratory wheezing in left upper lobe. Heart sounds are normal. Palpable pulses in all 4 extremities. Abd is rounded and soft with audible bowel sounds. Pt denies pain, headache, n/v. Administered AM meds as per EMAR. Started K replacement as per K Protocol. Pt has call light in reach and bed alarm is on.
--- NOTE | 2024-01-31 09:35 | NUR ---
PATIENT ALERT AND ORIENTED X2. VSS WITH THE EXCEPTION OF BLOOD PRESSURE, WHICH IS ELEVATED. PATIENT DENIES ANY PAIN. IV TO RIGHT FA INT AND FLUSHES WELL. PATIENT ON 2L NC. PATIENT EATING BREAKFAST. NO FURTHER NEEDS. CALL LIGHT IN REACH. BED ALARM ON.
--- NOTE | 2024-01-31 10:15 | NUR ---
Pt sitting in chair. Administered K replacement in orange juice (second dose of K protocol). Pt has chair alarm on and call mcclelland in reach.
--- NOTE | 2024-01-31 10:50 | NUR ---
Pt had assisted fall. Provider, charge nurse, and Lug Loader notified. Pt was assessed and VS taken and stable. Pt did not hit head. ERS and Falls report was completed.
--- NOTE | 2024-01-31 11:59 | NUR ---
Pt sitting up in bed with lunch tray. Administered meds per EMAR. Bed alarm on and falls precautions in place.
[2024-01-31] MEDS ORDERED: Lisinopril 10 MG TAB PO SCH (12:00)
[2024-01-31] MEDS ORDERED: QUEtiapine 25 MG TAB PO PRN (13:30)
--- NOTE | 2024-01-31 13:53 | NUR ---
Pt continued to attempt to get out of bed and fidgeting with oxygen tubeing, gown, and tele box. Called provider for anti-anxiety medication to help calm Pt. Administered as per EMAR.
--- NOTE | 2024-01-31 15:54 | NUR ---
service worker was notified by PT that patient has been unstable with their transfers and would recommend SNF. Dr. Morrissey met with social service liaison and expressed patient has had a fall and she would recommend SNF. SW contacted patient's , Theresa, and explained the recommendation. Theresa asked if home health would be able to assist with the falls. FCO explained home health would only be coming in the home about two or three days a week for about an hour unless the family private pays for additional care. Theresa expressed she would be unable to care for patient at this time so it would be best to do SNF. SW provided the options from Medicare.gov via telephone. Theresa expressed to send to all three in [facility], [facility] and [facility]. Theresa expressed patient has been at [facility] before and that would be the preference. FCO secure emailed the referral to all three agencies listed above. FCO was notified by [facility] that they are not in network with [employer] and patient would need to pay 50% and [employer] would pay the other 50%. FCO was notified that [facility] can accept patient pending authorization from patient's insurance. SW submitted authorization with [facility]. FCO notified patient's regarding [facility] able to accept pending authorization. Theresa understood. Discharge plan: SNF- [facility]- pending insurance authorization
--- NOTE | 2024-01-31 18:04 | NUR ---
Pt confused. Tried to reorient. Pt reported he had to go to bathroom. Provided Pt with urinal. Pt wetted bed with urine and had 200cc in urinal. Complete bed change and parital bath completed. Pt laying in bed. Bed alarm is on, call mcclelland in reach.
[2024-01-31] MEDS ORDERED: OLANZapine 5 MG,Water For Injection,Sterile 1 ML IM PRN (19:00)
--- NOTE | 2024-01-31 19:25 | NUR ---
PT RESTLESS, CONFUSED, HAS LEGS HANGING OVER SIDE OF BED. HS MEDS GIVEN, ZYPREXA 5MG IM RT DELTOID D/T AGITATION. RESTARTED INT TO RFA, PREVIOUS RFA SITE WITH SWELLING, DC'D, ANGIOCATH INTACT. BED ALARM ON.
--- NOTE | 2024-01-31 20:52 | NUR ---
LINENS CHANGED. PT CONFUSED, STILL AGITATED.
--- NOTE | 2024-01-31 23:33 | NUR ---
PT REMAINS RESTLESS, HAS LEGS HANGING OVER SIDE OF BED. ZYPREXA 5MG IM GIVEN NOW.
[2024-02-01] VITALS (8 sets, daily range): BP systolic 100–170; BP diastolic 62–91; PULSE 71–88; TEMP 97.8–98
--- NOTE | 2024-02-01 03:17 | NUR ---
PT AWAKE, AGITATED, TRYING TO GET OUT OF BED. LINENS AND CHUX CHANGED. ZYPREXA 5MG IM RVG GIVEN.
[2024-02-01 06:41] LABS: CREATININE, serum 0.77 mg/dL (0.72-1.25); POTASSIUM 3.9 mmol/L (3.5-4.5)
[2024-02-01 06:54] LABS: MAGNESIUM 2.2 mg/dL (1.6-2.6)
[2024-02-01] MEDS ORDERED: Potassium Bicarbonate/Citrate 20 MEQ Effervescent TAB PO ONE (07:30)
--- NOTE | 2024-02-01 09:01 | NUR ---
PT RESTING IN BED WITH EYES CLOSED, PT RELUCTANT TO WAKE UP STATING "JUST LEAVE ME ALONE". WATER SPONGE PRODIDED AND WET COUGH PERSISTING. VITALS STABLE. WILL CONTINUE TO MONITOR.
--- NOTE | 2024-02-01 09:27 | NUR ---
DR. ROCHA UPDATED ON PT STATUS. NO NEW ORDERS AT THIS TIME.
[2024-02-01] MEDS ORDERED: TAMIFLU30 MG PO (11:45)
[2024-02-01] MEDS ORDERED: CEFTIN500 MG PO (11:47)
[2024-02-01] MEDS ORDERED: SEROQUEL 2525 MG/TAB PO (11:51)
--- NOTE | 2024-02-01 12:01 | NUR ---
PT REMAINS RESTING IN BED WITH EYES CLOSED, VITALS STABLE, WAKES TO VERBAL STIMILI. WILL CONTINUE TO MONITOR. PLANS TO DISCHARGE TODAY.
--- NOTE | 2024-02-01 12:49 | NUR ---
FCO reviewed [employer] access and verified patient has approval from [facility] for SNF. FCO notified Mike at [facility]. hospice social worker was notified patient is medically cleared for discharge. SW was notified by nursing that patient was agitated last night and was given several doses of Zyprexa. SW notified [facility] of this and provided updates to determine if they would be able to accept today. SW was notified that [facility] is able to accept. SW was notified [facility] cherry picker operator patient today at 1 pm. FCO notified patient's nurse, Dr. Morrissey and patient's . Patient was sleeping and hard to wake, social sciences research scientist reviewed the important message from Medicare with patient's , Theresa. Theresa understood and provided verbal consent. SW made a copy, placed original in chart and provided copy to patient. FCO secure emailed discharge orders to [facility]. FCO was notified patient would be picked up by [facility] at 12:30 pm instead of 1 pm. FCO met with patient along with the nurse and Theresa, patient's via telephone. Patient was able to be woken up. FCO explained patient would be going to [facility] to get some strength back before he is able to return home. Theresa expressed she would be able to come visit him at [facility] once she was well enough to leave her home. FCO ensured patient understood what Theresa stated. Discharge plan: [facility] - SNF
--- NOTE | 2024-02-01 12:57 | NUR ---
PT DIFICULT TO WAKE WITH STIMULI, PT ASSISTED TO WHEELCHAIR, DISCHARGE PAPERWORK PROVIDED TO TRANSFER NURSE, REPORT CALLED TO TRUE RN AT [facility]. NO QUESTIONS AT THIS TIME. IV REMOVED.
== END 2024-02-01 12:50 | DRG 193 ==
LOC: COL.ER 19:58 → SURG 21:59
PROVIDERS: Family Medicine; Internal Medicine; Physician Assistant; ADMIT Internal Medicine
DX: J10.08 Influenza due to other identified influenza virus with other specified pneumonia (principal); J96.01 Acute respiratory failure with hypoxia; F03.911 Unspecified dementia, unspecified severity, with agitation; J44.9 Chronic obstructive pulmonary disease, unspecified; I10 Essential (primary) hypertension; F17.210 Nicotine dependence, cigarettes, uncomplicated; Z66 Do not resuscitate; J12.89 Other viral pneumonia; R29.6 Repeated falls; E87.6 Hypokalemia; F32.A Depression, unspecified; E78.5 Hyperlipidemia, unspecified; Z20.822 Contact with and (suspected) exposure to COVID-19; Z79.82 Long term (current) use of aspirin; Z79.899 Other long term (current) drug therapy; Z99.81 Dependence on supplemental oxygen
CPT/HCPCS: J0456; J0696; J1650; J3475; J3480; J7030; J7050

== ENCOUNTER 2024-07-01 23:36 | Observation (INO) | payer MEDICARE ==
[~2024-07-01] VITALS: Ht 182.9 cm; Wt 75.0 kg
[~2024-07-01 23:36] MED LIST changes: +CEFTIN500 MG PO; +SEROQUEL 2525 MG/TAB PO; +TAMIFLU30 MG PO
[2024-07-02] LABS: BASO % 0.2 % (0.0-2.0); EOS # 0.1 K/mm3 (0.0-0.7); EOS % 0.5 % (0.0-4.0); GRAN # 7.2 K/mm3 (1.4-6.5); HEMATOCRIT 38.5 % (42.0-52.0); HEMOGLOBIN 12.8 g/dl (13.5-18.0); LYMPH # 2.2 K/mm3 (1.2-3.4); LYMPH % 20.9 % (20.0-51.0); MEAN CELL VOLUME 98 fl (80.0-100.0); MEAN CORPUSCULAR HEMOGLOBIN 33 pg (27-31); MEAN CORPUSCULAR HGB CONC 33 g/dl (33.0-37.0); MEAN PLATELET VOLUME 9.4 fl (7.4-10.4); MONO # 1.1 K/mm3 (0.1-0.6); MONO % 10.2 % (1.7-9.3); PLATELET COUNT 240 K/mm3 (130-400); RED BLOOD COUNT 3.94 M/mm3 (4.20-5.60); REDCELL DISTRIBUTION WIDTH-CV 12.7 % (11.5-14.5)
[2024-07-02 00:12] LABS: ALBUMIN 3.9 g/dL (3.4-4.8); BILIRUBIN,TOTAL 0.7 mg/dL (0.2-1.2); CALCIUM 9.2 mg/dL (8.4-10.2); CREATININE, serum 1.02 mg/dL (0.72-1.25); TOTAL PROTEIN 6.5 g/dl (6.2-8.1)
[2024-07-02 00:25] LABS: TROPONIN-I 0.102 ng/mL (0.00-0.033)
[2024-07-02 00:54] LABS: URINE APPEARANCE CLEAR (CLEAR/HAZY); URINE BLOOD NEGATIVE (NEGATIVE); URINE COLOR YELLOW (YELLOW); URINE GLUCOSE NEGATIVE (NEGATIVE); URINE KETONE NEGATIVE (NEGATIVE); URINE NITRATE NEGATIVE (NEGATIVE); URINE PROTEIN(semi-quant) NEGATIVE (NEGATIVE)
[2024-07-02 01:07] LABS: COLLECTION METHOD CATHETER
[2024-07-02] MEDS ORDERED: Docusate Sodium 100 MG CAP PO PRN (01:15)
[2024-07-02] MEDS ORDERED: Acetaminophen 325 MG TAB PO PRN (01:15)
[2024-07-02] MEDS ORDERED: Ondansetron 4 MG/2 ML VIAL IV PRN (01:15)
[2024-07-02] MEDS ORDERED: Polyethylene Glycol 3350 17 GM PDS PO PRN (01:15)
--- NOTE | 2024-07-02 01:25 | NUR ---
Report recieved from KEENAN Damico from ED at this time. All questions answered at this time.
[2024-07-02 01:45] VITALS: BP 120/84; PULSE 83; TEMP 97.3
[2024-07-02] MEDS ORDERED: OLANZapine 5 MG,Water For Injection,Sterile 1 ML IM ONE (01:45)
[2024-07-02 02:00] VITALS: BP 120/84; PULSE 83
--- NOTE | 2024-07-02 02:30 | NUR ---
Patient arrived to room 354 at 0135. When transferring patient from ED bed to medical bed, patient became aggitated and attempted to try and punch staff, pull on thomas catheter, and try and get out of bed. Assessment complete. IV flushes easliy without complications. Hospitalist Yves Potter NP contacted for patient being combative. Recieved orders for 5mg Zyprexa IM once. Hospitalist Yves Potter NP at bedside about 0150 and gave verbal order for soft restraints for about 30 minutes until Zyprexa takes effect. Sitter at bedside for from 0140 until 0230. Soft restraints removed at 0230. Patient resting with eyes closed. Respirations even and unlabored. No signs of pain or distress. Attempted to complete Intake and MAR, unable to complete due to confusion and disorientation. Call light and personal items in reach. Bed in low position and bed alarm on. Room close to nurses station.
--- NOTE | 2024-07-02 05:30 | NUR ---
Patient resting in bed with eyes closed. Respirations even and unlaborded. No signs of pain or distress at this time. Call light in reach. Bed in low position and bed alarm on.
--- NOTE | 2024-07-02 08:00 | NUR ---
PT LAYING IN BED UPON ENTERING. ASSESSMENT DONE TO THE BEST OF THIS NURSES ABILITY. PT ALERT TO TOUCH BUT NOT OPENING EYES. PT NONVERBAL SO THIS NURSE UNABLE TO ASSESS ORIENTATION. INT TO LEFT FOREARM PATENT. PT HAS NO OBVIOUS SIGNS OF DISCOMFORT. ARAUZ PATENT WITHOUT ISSUES. PT FLAILING ARMS WHEN TOUCHED. PT HAS NO OBVIOUS NEEDS AT THIS TIME. BED IN LOWEST POSITION, CALL LIGHT IN REACH, BED ALARM ON
[2024-07-02] MEDS ORDERED: QUEtiapine 25 MG TAB PO PRN (10:15)
[2024-07-02 11:21] VITALS: BP 114/70; PULSE 68; TEMP 98.5
[2024-07-02 11:22] LABS: ANION GAP 11 mmol/L (7-16); BLOOD UREA NITROGEN 15 mg/dL (8-26); CHLORIDE 109 mEq/L (98-107); CREATININE, serum 0.86 mg/dL (0.72-1.25); GLUCOSE 92 mg/dL (70-99); POTASSIUM 3.7 mEq/L (3.5-4.5); SODIUM 141 mEq/L (136-145)
[2024-07-02 11:35] LABS: TROPONIN-I < 0.010 ng/mL (0.00-0.033)
--- NOTE | 2024-07-02 15:16 | NUR ---
Plug Assembler contacted patient's , Sheri (ph#[phone]) to discuss discharge planning. Patient lives in [place] with his and his 94 year old mother in law, Kacey. Sheri advised they have a home in [place] they are looking to put on the market and they are currently living in a rental here in [place]. Patient sees Dr. Prince for primary care. Sheri stated both she and patient have had declining health as of late. Sheri gets dialysis three times a week. Per Sheri, patient has had multiple falls and difficulty with ADLS. Theresa stated they have a hired napper tender that helps with bathing and Sheri helps with dressing. Sheri stated she is open to placement options as she agrees patient is not safe to return home at this time. FCO explained to Sheri that based on patient's behaviors (attempting to hit staff, requiring soft restraints) he may need geripsych prior to residential placement. Sheri is agreeable to this and understands these facilities are out of town. Sheri would prefer the [facility] if possible. Sheri advised they are not able to private pay for residential placement after geripsych and is agreeable to work on a medicaid application. FCO contacted Yandel, Financial Counselor to request assistance with a Medicaid application. FCO also contacted KEENAN Ceron-CM at Dr. Prince's office who advised they have been discussing Medicaid and residential placement with patient's , Sheri but no referrals had been sent at this time. FCO [facility]ida faxed referrals to area [facility] including [facility], [facility], [facility], [facility], [facility], [facility], [facility], [facility], [facility], [facility], [facility], and [facility]. FCO received a phone call from Philly at [facility] who advised they cannot take [employer]. Discharge Plan: [facility]
--- NOTE | 2024-07-02 15:37 | NUR ---
Juan from [facility] called and requested copy of DPOA-HC. If they can accept, they will request a letter from Hospitalist that patient cannot make decisions and DPOA will need to be enacted.
--- NOTE | 2024-07-02 15:44 | NUR ---
[facility] declined and stated they could not meet patient's needs.
--- NOTE | 2024-07-02 16:13 | NUR ---
[facility] at [facility] stated they are at capacity today, however they have some pending discharges and will continue to review.
[2024-07-02] MEDS ORDERED: SEROQUEL50 MG PO (17:25)
[2024-07-02 19:49] VITALS: BP 134/79; PULSE 75; TEMP 98
--- NOTE | 2024-07-02 19:50 | NUR ---
Patient resting in bed. Denies any pain or needs at this time. Assissted patient in eating some of his dinner and snack. Denies any pain at this time. Assessment complete. IV in left forearm flushes easliy without complications. Call light and personal items in reach. Bed in low position and bed alarm on.
[2024-07-02 21:00] VITALS: BP_SYST 118
[2024-07-02] MEDS ORDERED: QUEtiapine 25 MG TAB PO SCH (21:00)
[2024-07-02 23:27] VITALS: BP 118/72; PULSE 66; TEMP 98
[2024-07-03 06:39] LABS: BASO % 0.3 % (0.0-2.0); EOS # 0.1 K/mm3 (0.0-0.7); EOS % 0.5 % (0.0-4.0); GRAN # 8.8 K/mm3 (1.4-6.5); GRAN % 71.7 % (42.2-75.2); HEMATOCRIT 39.8 % (42.0-52.0); HEMOGLOBIN 12.9 g/dl (13.5-18.0); LYMPH # 2.2 K/mm3 (1.2-3.4); LYMPH % 17.7 % (20.0-51.0); MEAN CELL VOLUME 100 fl (80.0-100.0); MEAN CORPUSCULAR HEMOGLOBIN 33 pg (27-31); MEAN CORPUSCULAR HGB CONC 32 g/dl (33.0-37.0); MEAN PLATELET VOLUME 9.8 fl (7.4-10.4); MONO # 1.2 K/mm3 (0.1-0.6); MONO % 9.5 % (1.7-9.3); PLATELET COUNT 268 K/mm3 (130-400); RED BLOOD COUNT 3.97 M/mm3 (4.20-5.60); REDCELL DISTRIBUTION WIDTH-CV 12.9 % (11.5-14.5)
[2024-07-03 07:13] LABS: CALCIUM 9.1 mg/dL (8.4-10.2); CREATININE, serum 0.92 mg/dL (0.72-1.25); POTASSIUM 3.7 mEq/L (3.5-4.5)
[2024-07-03 08:56] VITALS: BP 152/74; PULSE 61; TEMP 97.6
[2024-07-03] MEDS ORDERED: Sertraline 50 MG TAB PO SCH (09:00)
[2024-07-03 09:35] VITALS: BP_SYST 152
--- NOTE | 2024-07-03 10:29 | NUR ---
PT LAYING IN BED UPON ENTERING. PT ALERT BUT UNABLE TO ANSWER ORIENTATION QUESTIONS. INT TO LEFT FOREARM PATENT. PILL CRUSHED AND GIVEN WITH PUDDING, PT FINSIHED PUDDING CUP. ARAUZ PATENT WITHOUT ISSUES. NO OBVIOUS PAIN OR NEEDS NOTED. BED IN LOWEST POSITION, CALL LIGHT IN REACH, BED ALARM ON
--- NOTE | 2024-07-03 10:35 | NUR ---
EDA SOCIAL WORK, NOTIFIED THAT [facility] CALLED THIS NURSE REQUESTING COVID RESULTS FROM WITHIN 24 HOURS AND OA PAPERWORK FAXED OVER.
--- NOTE | 2024-07-03 16:15 | NUR ---
Mortgage Operations Manager met with patient's , Theresa and daughter, Sharmaine (via speakerphone) to discuss update. FCO advised there was no accepting facility at this time. FCO discussed a Medicaid application and LTC placement following geripsych. Patient's family is agreeable to the Medicaid application as they cannot private pay for LTC. FCO contacted Yandel Financial Counselor to contact family. Patient's and daughter are interested in [facility], [facility], and [facility] as they feel patient needs memory care. FCO Addison gave referrals to all three via secure email. [facility] requested DPOA-HC and negative covid test, which SW faxed to them. [facility] declined referral as patient has thomas catheter and they already have a high medical acuity. [facility] advised they are on an admissions hold due to covid so cannot look at admits until possibly next week.
--- NOTE | 2024-07-03 16:42 | NUR ---
COVID NEGATIVE, PRECAUTIONS REMOVED
[2024-07-03 20:02] VITALS: BP 133/75; PULSE 74; TEMP 98
[2024-07-03 21:00] VITALS: BP_SYST 133
[2024-07-03] MEDS ORDERED: Atorvastatin 20 MG TAB PO SCH (21:00)
[2024-07-03 21:45] VITALS: BP_SYST 133
--- NOTE | 2024-07-03 21:45 | NUR ---
Patient resting in bed. Denies any pain or needs. Patient is alert but unable to answere orientation questions. Patient is able to follow some very few commands with demonstration. Assessment compete. IV in left forearm flushes easlily without complications. Call light and personal tiems in reach. Bed in low position and bed alarm on.
[2024-07-04 07:40] VITALS: BP 150/80; PULSE 68; TEMP 98.3
--- NOTE | 2024-07-04 07:42 | NUR ---
PT SLEEPING IN BED UPON ENTERING, RISE AND FALL OF CHEST NOTED. PT EYES CLOSED AND MUMBLING TO THIS NURSE DURING ASSESSMENT. UNABLE TO ASSESS ORIENTATION DUE TO MENTATION. PT ALERT TO VOICE. ASSESSMENT DONE, MED CRUSHED AND GIVEN WITH PUDDING. ARAUZ PATENT WITHOUT ISSUES. INT TO LEFT FOREARM PATENT. PT HAS NO OBVIOUS NEEDS OR SIGNS OF PAIN AT THIS TIME. BED IN LOWEST POSITION, CALL LIGHT IN REACH, BED ALARM ON
[2024-07-04 08:38] VITALS: BP_SYST 150
[2024-07-04 09:42] LABS: BASO % 0.3 % (0.0-2.0); EOS % 0.3 % (0.0-4.0); GRAN # 8.7 K/mm3 (1.4-6.5); GRAN % 74.1 % (42.2-75.2); HEMATOCRIT 41.1 % (42.0-52.0); HEMOGLOBIN 13.6 g/dl (13.5-18.0); LYMPH # 1.9 K/mm3 (1.2-3.4); LYMPH % 16.4 % (20.0-51.0); MEAN CELL VOLUME 97 fl (80.0-100.0); MEAN CORPUSCULAR HEMOGLOBIN 32 pg (27-31); MEAN CORPUSCULAR HGB CONC 33 g/dl (33.0-37.0); MEAN PLATELET VOLUME 9.7 fl (7.4-10.4); MONO % 8.6 % (1.7-9.3); PLATELET COUNT 277 K/mm3 (130-400); RED BLOOD COUNT 4.24 M/mm3 (4.20-5.60); REDCELL DISTRIBUTION WIDTH-CV 12.6 % (11.5-14.5)
[2024-07-04 09:58] LABS: CALCIUM 9.3 mg/dL (8.4-10.2); POTASSIUM 3.4 mEq/L (3.5-4.5)
--- NOTE | 2024-07-04 16:02 | NUR ---
Chief Of Service and Docking Pilot contacted patient's , Theresa to provide update. FCO advised that at this time, patient is not requiring soft restraints, not having aggressive behaviors, and not needing any IM medications. With all this, patient will likely not meet criteria for [facility] psych. Family still wants skilled nursing placement and are in financial counselor's office now completing a Medicaid application. FCO contacted Mike at [facility] who has had patient there before. Mike stating they are willing to consider patient. Mike stated they would [facility] prior to transitioning to Medicaid LTC. FCO faxed clinicals to [facility] to request SNF auth. FCO will provide Medicaid application to Mike once it is completed by Financial Counseling. Discharge Plan: SNF/LTC, pending referrals, [facility] willing to consider
[2024-07-04 20:15] VITALS: BP_SYST 134
--- NOTE | 2024-07-04 20:20 | NUR ---
Initial shift assessment done,alert,confused, mumbles cannot understand, at times shouts out when looking at window-- lowered the window shades at this time, did take his meds crushed in pudding with much encouragement, very weak, refusing his SCD,s - close to nsg desk, bed alarm on.
[2024-07-04 20:37] VITALS: BP 134/79; PULSE 78; TEMP 97.9
--- NOTE | 2024-07-05 07:01 | NUR ---
Quiet night-- did sleep well,,bed alarm onPriyanka Vazquez with mookie urine-
--- NOTE | 2024-07-05 07:10 | NUR ---
PETERNET ASLEEP, RESTING IN BED. RESPIRATIONS WITHIN NORMAL LIMITS. CALL LIGHT WTIHIN REACH, FALL PRECAUTIONS IN PLACE AND BED ALARM ON.
[2024-07-05 09:00] VITALS: BP_SYST 134
--- NOTE | 2024-07-05 12:00 | NUR ---
PATINT ASLEEP, RESTING IN BED. PATIENT GRUMBLES WHEN DISTURBED BY STAFF TO OPEN HIS EYES AND EAT SOME LUNCH. PATIENT OPENED HIS EYES AND LOOKED AT NURSE WHEN WE WERE REPOSITIONING HIM. PATIENT WAS ANNOYED, AND LOOKED THOUGH HE WAS GOING BACK TO SLEEP.
[2024-07-05 12:58] VITALS: BP 135/80; PULSE 63; TEMP 98.1
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
--- NOTE | 2024-07-05 18:40 | NUR ---
NIGHT MUCKER OPERATOR MADE AWARE STAFF WAS AWAITING SECURITY ARRIVAL FOR ASISSTANCE TO GET PATIENT BACK TO BED SAFELY, HE WAS EDGE OF BED WITH HIS LEFS SWUNG OVER THE RAIL. PATIENT KICKING AND PUNCHING AT STAFF WHENEVER WE ATEMPTED TO DESECALATE AND ASSIST HIM BACK TO BED. PER NIGHT MUCKER OPERATOR GIVE PATIENT HIS 2100 SCHEDULED SEROQUEL NOW.
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
[2024-07-05 20:30] VITALS: BP_SYST 137
--- NOTE | 2024-07-05 20:30 | NUR ---
Initial shift assessment done- was very agitated at shift change, he did end up calming down with java security engineer talking with him, has been sleeping for about 45 minutes, awake now and overall cooperative, did give him some tylenol crushed in pudding for pain "all over", is talking at times but still very confused and mumbles most of the time- VSS. bed alarm on-close to [facility] station.
[2024-07-05 20:34] VITALS: BP 137/76; PULSE 72; TEMP 98.3
--- NOTE | 2024-07-06 06:31 | NUR ---
Did sleep on and off all night,, Taylor with 300cc this shift, remains agitated when he wakes at times, any noise from wells and he would wake up and shout out- attempted to get him to use the bedpan but pt did not understand , too unsteady and agitated to get to commode during the night-
[2024-07-06 08:15] VITALS: BP 151/80; PULSE 67; TEMP 98.3
[2024-07-06] MEDS ORDERED: Lisinopril 10 MG TAB PO SCH (09:00)
[2024-07-06 09:19] VITALS: BP_SYST 151
[2024-07-06 10:33] LABS: BASO % 0.4 % (0.0-2.0); EOS # 0.1 K/mm3 (0.0-0.7); EOS % 1.2 % (0.0-4.0); GRAN # 6.9 K/mm3 (1.4-6.5); GRAN % 69.2 % (42.2-75.2); HEMATOCRIT 37.4 % (42.0-52.0); HEMOGLOBIN 12.6 g/dl (13.5-18.0); LYMPH % 20.3 % (20.0-51.0); MEAN CELL VOLUME 97 fl (80.0-100.0); MEAN CORPUSCULAR HEMOGLOBIN 33 pg (27-31); MEAN CORPUSCULAR HGB CONC 34 g/dl (33.0-37.0); MEAN PLATELET VOLUME 9.5 fl (7.4-10.4); MONO # 0.9 K/mm3 (0.1-0.6); MONO % 8.7 % (1.7-9.3); PLATELET COUNT 291 K/mm3 (130-400); RED BLOOD COUNT 3.86 M/mm3 (4.20-5.60); REDCELL DISTRIBUTION WIDTH-CV 12.7 % (11.5-14.5)
[2024-07-06 10:51] LABS: CALCIUM 8.8 mg/dL (8.4-10.2); CREATININE, serum 0.94 mg/dL (0.72-1.25); POTASSIUM 3.7 mEq/L (3.5-4.5)
--- NOTE | 2024-07-06 16:01 | NUR ---
PATIENT GIVEN BED BATH AND FULL LINEN CHANGE. CALL LIGHT WITHIN REACH, FALL PRECAUTINS IN PLACE.
--- NOTE | 2024-07-06 17:00 | NUR ---
PATIENT HAD A LARGE FIRM STOOL ON THE BEDSIDE COMMODE WITH 2 ASSIST.
[2024-07-06 17:33] VITALS: BP 118/72; PULSE 74; TEMP 97.8
[2024-07-06 19:23] VITALS: BP 129/89; PULSE 75; TEMP 98.8
[2024-07-06 20:18] VITALS: BP_SYST 129
--- NOTE | 2024-07-06 20:30 | NUR ---
Patient in bed attempting to get out of bed stating "Where's my keys? I need to go park my truck." Attempted to reorient patient. Patient looks down toward the ground and stated "Tell that dog or cat to come over here." Then attempting to call the animal over. Patient appears to be seeing things that are not real and unable to reorient patient. Denies any pain or needs. Snack provided with evening meds. Assessment complete. IV in left forearm flushes easliy without complications. Vazquez draining to dependent drainage. Call light and personal items in reach. Bed in low position and bed alarm on.
[2024-07-06 21:00] VITALS: BP_SYST 129
--- NOTE | 2024-07-07 06:13 | NUR ---
Patient resting in bed. Denies any pain at this time. Needs met. No changes over night. Call light and personal items in reach. Bed in low position and bed alarm on.
[2024-07-07 07:13] VITALS: BP 109/68; PULSE 69; TEMP 97.8
[2024-07-07 09:37] VITALS: BP_SYST 109
--- NOTE | 2024-07-07 09:38 | NUR ---
PT LAYING IN BED UPON ENTERING. ASSESSMENT DONE, MEDS CRUSHED AND GIVEN IN PUDDING. PT REFUSED LOVENOX. PT ORIENTED TO SELF AND ABLE TO TELL THIS NURSE HIS NAME AND BIRTHDAY. SPEECH IS MORE CLEAR TODAY WITH MUMBLING NOTED. INT TO LEFT FOREARM PATENT. ARAUZ DRAINING WITHOUT ISSUES. PT HAS NO OBVIOUS SIGNS OF PAIN AND CALMY RESTING IN BED. THIS NURSE AND PCT REPOSITIONED PT. BED IN LOWEST POSITION, CALL LIGHT IN REACH, BED ALARM ON
[2024-07-07] MEDS ORDERED: Nicotine 14 MG DAILY PATCH TD SCH (10:51)
[2024-07-07] MEDS ORDERED: QUEtiapine 25 MG TAB PO ONE (11:00)
--- NOTE | 2024-07-07 11:10 | NUR ---
PT CONTINUOUSLY THROWING LEGS OVER BED RAIL STATING HE WANTS TO LEAVE. THIS NURSE AND PCT AT BESIDE REPOSITIONING IN BED ON MULTIPLE ATTEMPTS. PT GIVEN COLORING SHEETS TO KEEO BUSY AND PUSHING THEM OFF THE TABLE. PT THREATENING TO SHOOT STAFF AND RAISED FIST BACK AT THIS NURSE. THIS NURSE TOLD PT THAT IF HE WERE TO CONTINUE WITH AGGRESSIVE BEHAVIOR SECURITY WOULD BE CALL AND PT STATES "CALL THEM" THEN ASKING FOR A CIGARETTE. MONTSERRAT THEODORE, NOTIFIED AND THIS NURSE ASKED FOR A NICOTINE PATCH. ONE TIME SEROQUEL 12.5MG, TYLENOL AND NICOTINE PATCH GIVEN. PT REPOSITIONED BACK IN BED. FALL PRECAUTIONS IN PLACE, CALL LIGHT IN REACH
--- NOTE | 2024-07-07 14:05 | NUR ---
9MLS OF WATER REMOVED FROM ARAUZ BALLOON. ARAUZ REMOVED, PT TOLERATED WELL AND STATES "IM TIRED OF YOUR BLACK ASS". THIS NURSE AND PCT PUT A BRIEF ON PT AND REPOSITIONED HIM UP IN BED. FALL PRECAUTIONS IN PLACE, CALL LIGHT IN REACH
[2024-07-07] MEDS ORDERED: OLANZapine 5 MG TAB PO ONE (15:15)
--- NOTE | 2024-07-07 15:20 | NUR ---
PTS BED ALARM GOING OFF AND PT STANDING AT SIDE OF THE BED, VENUS AT BEDSIDE. PT STATING THAT HE WANTS TO LEAVE AND THIS NURSE REORIENTING PT AND EDUCATING HIM OF FALL RISK PRECAUTIONS. THIS NURSE AND VENUS ATTEMPTED TO PUT PT IN BED WHEN PT KICKED VENUS IN HER LEG. PT BECOMING INCREASINGLY AGITATED. MONTSERRAT RAY, CALLED AND UPDATED. ONE TIME ORDER OF ZYPREXA GIVEN PER JAN. PT REORIENTED TO REPOSITIONED UP IN BED. PT TELLS THIS NURSE "SHUT UP AND GO IN ANOTHER ROOM". FALL PRECAUTIONS IN PLACE, CALL LIGHT IN REACH
--- NOTE | 2024-07-07 15:44 | NUR ---
Seafood Preparer sent clinical updates and Medicaid application to Mike at [facility] for review. SW attempted to contact Rosa at [facility] and left a message. FCO also contacted Maddison at [facility] to check on referral. FCO contacted [facility] and authorization is pending.
--- NOTE | 2024-07-07 17:42 | NUR ---
PT CALLED INTO ROOM BY PCT STATING THAT PT IS CHOKING. PTS FACE IS RED AND PT HITTING HIS CHEST. HEIMLICH DONE BY THIS NURSE AND PT FROTHY SPUTUM WITH SMALL FOOD PIECES NOTED. PT STATES "DONT START THAT SHIT WITH ME" AND REPOSITIONED IN BED BY THIS RN AND OYSTER FARMER. DR ROCHA NOTIFIED AND GAVE THIS NURSE A VERBAL ORDER TO CHANGE DIET TO MINCED AND MOIST.
[2024-07-07] MEDS ORDERED: QUEtiapine 25 MG TAB PO PRN (18:45)
--- NOTE | 2024-07-07 19:05 | NUR ---
PATIENT TRYING TO GET UP OUT OF BED AND ASKING IF PRIMARY NURSE HAS A GUN. PATIENT CONFUSED AND AGITATED. PATIENT ASSISTED UP FOR WALK AROUND UNIT WITH GRAVURE PRINTING MACHINIST SAROJ AND CHARISSA WITH WALKER ALONG WITH WHEELCHIAR FOLLOWING. BEDSIDE REPORT RECIEVED FROM VANIA AT THIS TIME.
--- NOTE | 2024-07-07 19:06 | NUR ---
PT GETTTING INCREASINGLY AGITATED GETTING OUT OF BED AT LEAST 5 TIMES IN THE LAST HOUR. ROMEO CALLED AND UPDATED AND THIS NURSE TOLD TO GIVEN SCHEDULED 2100 SEROQUEL NOW. TELEPHONE ORDER GIVEN FOR SEROQUEL TWICE A DAY PRN.
--- NOTE | 2024-07-07 19:10 | NUR ---
PT AMBULATING AROUND THE UNIT WITH WALKER AND 2 ASSIST. LINEN CHANGED AND PT BACK TO BED. FALL PRECAUTIONS IN PLACE, CALL LIGHT IN REACH
--- NOTE | 2024-07-07 19:15 | NUR ---
PATIENT RESTING IN BED AFTER WALK. PATIENT CONFUSED AND ALERT. ASSESSMENT COMPLETED. PATIENT ASKED PRIMARY NURSE FOR KISS AND PRIMARY NURSE TOLD PATIENT THAT HER WOULD NOT LIKE THAT. PATIENT GIVEN DRINK OF DR. LU. PATIENT SWALLOW WITHOUT ANY DIFFICULTY NOTED. ALL NEEDS MET. BED IN LOW POSITIN WITH WHEELS LOCKED WITH RAILS UP X3 AND CALL LIGHT WITHIN REACH. BED ALARM ON.
--- NOTE | 2024-07-07 19:16 | NUR ---
REPORT GIVEN TO KEENAN TITUS
[2024-07-08 07:27] LABS: BASO # 0.1 K/mm3 (0.0-0.2); BASO % 0.5 % (0.0-2.0); EOS # 0.2 K/mm3 (0.0-0.7); EOS % 1.5 % (0.0-4.0); GRAN # 10.3 K/mm3 (1.4-6.5); GRAN % 75.6 % (42.2-75.2); HEMATOCRIT 40.9 % (42.0-52.0); HEMOGLOBIN 13.6 g/dl (13.5-18.0); LYMPH % 14.6 % (20.0-51.0); MEAN CELL VOLUME 97 fl (80.0-100.0); MEAN CORPUSCULAR HEMOGLOBIN 32 pg (27-31); MEAN CORPUSCULAR HGB CONC 33 g/dl (33.0-37.0); MEAN PLATELET VOLUME 9.4 fl (7.4-10.4); MONO % 7.3 % (1.7-9.3); PLATELET COUNT 305 K/mm3 (130-400); RED BLOOD COUNT 4.21 M/mm3 (4.20-5.60); REDCELL DISTRIBUTION WIDTH-CV 12.4 % (11.5-14.5)
[2024-07-08 07:41] LABS: CREATININE, serum 0.82 mg/dL (0.72-1.25); POTASSIUM 3.7 mEq/L (3.5-4.5)
[2024-07-08 08:00] VITALS: BP 119/75; PULSE 65; TEMP 97.7
--- NOTE | 2024-07-08 08:00 | NUR ---
Assessment completed. Patient alert. Oriented to name and only. Speech difficulty to understand. Pt cooperative. Medications crushed and administered with chocolate pudding. PCT assisted patient with pureed breakfast. No coughing or choking noted. Fall precautions in place.
[2024-07-08 09:19] VITALS: BP_SYST 119
--- NOTE | 2024-07-08 14:30 | NUR ---
Mike at [facility] advised they reviewed Medicaid application and have financial acceptance. [facility] declined SNF so patient will go LTC. Per , a CARE assessment was completed by the [facility] last month. FCO left a message for Spring with the AAA requesting a copy. Mike stated their clinical team had concerns about patient's behaviors that were documented for the last 24 hours. Mike requested updates tomorrow to determine if they can meet needs. Mike advised patient has been with them before.
--- NOTE | 2024-07-08 14:57 | NUR ---
metal casting trades worker spoke with Mimi at [facility] and secured that they will have their nursing evaluate patient, in person, tomorrow morning to secure a definitive decline or acceptance.
--- NOTE | 2024-07-08 15:38 | NUR ---
Via Tierney Cassie will screen patient in person tomorrow. FCO sent referrals also to [facility] and [facility]. FCO received a message from [facility] declining referral.
--- NOTE | 2024-07-08 18:18 | NUR ---
Patient calls out when needs to urinate or have a bowel movement. Ambulates to BR but gait unsteady and patient has difficulty following commands. Remains oriented to self and only. in to visit earlier today. Has not showed any signs of aggression or agitation. Speech difficult to understand at times but states he is at his baseline.
--- NOTE | 2024-07-08 18:59 | NUR ---
PATIENT SITTING UP IN BED WITH TV ON WITH NO FAMILY PRESENT WITH NO ACUTE DISTRESS NOTED. PATIENT FIDGATING WITH SHEET, CUP ON BEDSIDE TABLE, SIDE RAIL, AND BLANKET. PATIENT ALERT AND CONFUSED, BUT PLEASANT. INT TO LEFT FOREARM INTACT AND WRAPPED WITH SARAH BANDAGE. BEDSIDE SHIFT REPORT COMPLETED WITH TAURUS AT THIS TIME. ALL NEEDS MET. BED IN LOW POSITON WITH WHEELS LOCKED WITH RAILS UP X3 AND CALL LIGHT WITHIN REACH. BED ALARM ON.
[2024-07-08 19:35] VITALS: BP_SYST 142
--- NOTE | 2024-07-08 19:37 | NUR ---
PATIENT RESTING IN BED WITH TV ON WITH NO FAMILY PRESENT WITH NO ACUTE DISTRESS NOTED. PATIENT ON ROOM AIR. INT TO LEFT FOREARM INTACT WITH NO COMPLICATIONS NOTED. ASSESSMENT, VITAL SIGNS, AND MEDICATION ADMINISTRATION COMPLETED AT THIS TIME. PATIENT TOLERATED WELL. PATIENT ATE CUP OF ORANGE SHERBET ICE CREAM WITH MELTED POPCYCLE AND VANILLA ICE CREAM. SCABBED OVER ABRAION NOTED TO FOREHEAD. ALL NEEDS MET. BED IN LOW POSITION WITH WHEELS LOCKED WITH RAILS UP X3 AND CALL LIGHT WITHIN REACH. BED ALARM ON.
[2024-07-08 19:45] VITALS: BP 142/79; PULSE 74; TEMP 97.6
[2024-07-08 21:00] VITALS: BP 142/79; PULSE 74; TEMP 97.6
--- NOTE | 2024-07-09 06:45 | NUR ---
BEDSIDE SHIFT REPORT RECIEVED AT THIS TIME.
--- NOTE | 2024-07-09 09:08 | NUR ---
SHIFT ASSESSMENT COMPLTETED AT THIS TIME. PT A&OX2, ONLY TO PERSON AND . PT RESTING IN BED PEACEFULLY UPON ENTRANCE TO ROOM. SCHEDULED MORNING MEDICATIONS ADMINISTERED WITHOUT COMPLICATIONS, CRUSHED IN PUDDING. PT DENIES PAIN, SOB AND NAUSEA. PT ASSSITED WITH BEDBATH WITHOUT COMPLICATIONS. LINENS CHANGED. [facility] STAFF AT BEDSIDE TO ASSESS PATIENT FOR POSSIBLE PLACEMENT. PT COOPERATIVE AND PLEASENTLY CONFUSED. FALL PRECAUTIONS IN PLACE. CALL LIGHT WITHIN REACH. NO FURTHER NEEDS AT THIS TIME.
[2024-07-09 09:22] VITALS: BP 131/82; PULSE 77; TEMP 97.6
[2024-07-09 09:24] VITALS: BP_SYST 131
--- NOTE | 2024-07-09 14:55 | NUR ---
Updates on Referrals: Referrals sent and awaiting review: [facility] [place] [place], [facility], [facility] [place], [place], [facility] [place], [facility], [facility], [facility], [facility], [facility], [facility], [facility], [facility], [facility], [facility], [facility] in [place], [facility], [facility] [place], [facility] [place], [facility], [facility] in [place], [facility] in [place], [facility] in [place] and [facility] in [place] Declined: [facility] [place], [facility], [facility] in [place], [facility], [facility], [facility],
--- NOTE | 2024-07-09 15:32 | NUR ---
slate worker contacted Jie with Dr Prince's office and inquired what Dr Prince thought about hospice appropriateness. Dr Prince was agreeable for a hospice review on patient and would support this plan. Worker contacted Elsy at [facility] and gave the referral. Clinical information was emailed to [facility].
--- NOTE | 2024-07-09 15:54 | NUR ---
[facility] declined.
--- NOTE | 2024-07-09 16:13 | NUR ---
casting house worker contacted [facility] whom did not receive the referral. FCO secure emailed the referral to Valerie at [facility]. FCO contacted [facility] whom received the referral but has not been able to review yet. They accept medicaid pending depending on how many beds they currently have as Medicaid pending, they would like to see the Medicaid application first. FCO faxed the Medicaid application to them. FCO attempted to contact Eva Spivey, no answer, unable to leave voicemail.
--- NOTE | 2024-07-09 16:28 | NUR ---
TELEPHONE CALL MADE TO DR. BRIDGES TO VERIFY NEW ORDERS. THIS NURSE REPORTS THAT PT HAS BEEN PLESANT ALL DAY AND HAVE HAD NO ISSUES. NEW ORDERS RECIEVED.
[2024-07-09] MEDS ORDERED: LORazepam 0.5 MG TAB PO ONE (18:00)
--- NOTE | 2024-07-09 18:50 | NUR ---
PATIENT RESTING IN BED WITH TV ON WITH NO FAMILY PRESENT WITH NO ACUTE DISTRESS NOTED. PATIENT ON ROOOM AIR. INT TO LEFT FOREARM INTACT WITH NO COMPLICATIONS NOTED. BEDSIDE SHIFT REPORT COMPLETED LESVIA RAMIREZ AT THIS TIME. PATIENT ALERT AND CONFUSED. ALL NEEDS MET. BED IN LOW POSITION WITH WHEELS LOCKED WITH RAILS UP X3 AND CALL LIGHT WITHIN REACH. BED ALARM ON.
--- NOTE | 2024-07-09 18:55 | NUR ---
Agree with MARQUITA Peña assessment and patient notes. Patient has been pleasant and cooperative throughout day. Fall precautions in place. visited earlier this afternoon. Assisted with meals and medications taken crushed with pudding.
[2024-07-09 19:05] VITALS: BP_SYST 146
--- NOTE | 2024-07-09 19:05 | NUR ---
PATIENT RESTING IN BED WITH TV ON WITH NO FAMILY PRESENT WITH NO ACUTE DISTRESS NOTED. PATIENT ON ROOM AIR. INT TO LEFT FOREARM INTACT WITH NO COMPLICATIONS NOTED. INT COVERED WITH SARAH BANDAGE. ASSESSMENT COMPLETED AT THIS TIME. PATIENT TOLERATED WELL. ALL NEEDS MET. BED IN LOW POSITION WITH WHEELS LOCKED WITH RAILS UP X3 AND CALL LIGHT WITHIN REACH. BED ALARM ON.
[2024-07-09 19:29] VITALS: BP 146/81; PULSE 66; TEMP 98.1
[2024-07-09] MEDS ORDERED: QUEtiapine 25 MG TAB PO SCH (20:00)
--- NOTE | 2024-07-09 20:32 | NUR ---
PATIENT RESTING IN BED WITH LEGS HANDING OFF EDEGE OF BED WITH TV ON WITH NO FAMILY PRESENT WITH NO ACUTE DISTRESS NOTED. PATIENT ON ROOM AIR. INT TO LEFT FOREARM INTACT WITH NO COMPLICATIONS NOTED. MEDICATION ADMINISTRATION COMPLETED AT THIS TIME. PATIENT PULLED UP IN BED AND HELPED TO REPOSITION FOR COMFORT. PATINET TOLERATED WELL. ALL NEEDS MET. BED IN LOW POSITION WITH WHEELS LOCKED WITH RAILS UP X3 AND CALL LIGHT WITHIN REACH. BED ALARM ON.
[2024-07-10 06:54] LABS: BASO # 0.1 K/mm3 (0.0-0.2); BASO % 0.4 % (0.0-2.0); EOS # 0.1 K/mm3 (0.0-0.7); EOS % 1.1 % (0.0-4.0); GRAN # 7.9 K/mm3 (1.4-6.5); GRAN % 67.1 % (42.2-75.2); HEMATOCRIT 41.2 % (42.0-52.0); HEMOGLOBIN 13.4 g/dl (13.5-18.0); LYMPH # 2.7 K/mm3 (1.2-3.4); LYMPH % 23.4 % (20.0-51.0); MEAN CELL VOLUME 99 fl (80.0-100.0); MEAN CORPUSCULAR HEMOGLOBIN 32 pg (27-31); MEAN CORPUSCULAR HGB CONC 33 g/dl (33.0-37.0); MEAN PLATELET VOLUME 9.8 fl (7.4-10.4); MONO # 0.9 K/mm3 (0.1-0.6); MONO % 7.6 % (1.7-9.3); PLATELET COUNT 336 K/mm3 (130-400); RED BLOOD COUNT 4.16 M/mm3 (4.20-5.60); REDCELL DISTRIBUTION WIDTH-CV 12.4 % (11.5-14.5)
--- NOTE | 2024-07-10 07:00 | NUR ---
appears to be sleeping, bedside shift report received from KEENAN Michael
[2024-07-10 07:14] LABS: CALCIUM 9.9 mg/dL (8.4-10.2); POTASSIUM 3.7 mEq/L (3.5-4.5)
[2024-07-10 07:46] VITALS: BP 123/63; PULSE 55; TEMP 97.5
--- NOTE | 2024-07-10 08:19 | NUR ---
appears to continue to sleep, lying on left side, resp quiet and easy
[2024-07-10 08:33] VITALS: BP_SYST 123
--- NOTE | 2024-07-10 09:00 | NUR ---
physical therapy in to work with patient, patient is smiling and cooperative at this time, assisted up and ambulated in wells and then to recliner for breakfast
--- NOTE | 2024-07-10 09:30 | NUR ---
sitting up in chair eating breakfast and is pleasant and cooperative at this time but is confused, is oriented to self, takes po meds crushed and takes in pudding and tolerates well
--- NOTE | 2024-07-10 09:55 | NUR ---
Dr Avendano and care team in to see patient
--- NOTE | 2024-07-10 10:20 | NUR ---
remains up in recliner, full assessment completed, see interventions for further info
--- NOTE | 2024-07-10 11:00 | NUR ---
remains resting in chair and appears to be sleeping, resp quiet and easy
--- NOTE | 2024-07-10 12:45 | NUR ---
assisted SURGERY TECH with hygiene, had patient stand and cocyx and left side of buttock red but blanches well, he has been sitting in recliner leaving towards the left, area on cocyx and buttocks massaged and redness clears, mepilex dressing placed over cocyx
--- NOTE | 2024-07-10 14:00 | NUR ---
in to visit, sitting at bedside
--- NOTE | 2024-07-10 14:19 | NUR ---
patient's INT is in the left forearm, it is intact without redness or swelling
--- NOTE | 2024-07-10 16:34 | NUR ---
Referral Update: [facility] declined based on behaviors. [facility] [place] initially declined due to behaviors, however SW requested they look at updates, which SW sent via secure email. Kenroy at [facility] stated she will have clinical team review. [facility] as no open LTC beds. [facility] declined referral. SW contacted to Kristin to follow up on denial and inquire if they were willing to review updates with improvement. Unfortunately they already have a high acuity with other patients who have dementia so they will not reconsider.
--- NOTE | 2024-07-10 16:45 | NUR ---
assisted back to bed by SANDWICH ARTIST, has remained cooperative throughout the day
--- NOTE | 2024-07-10 17:55 | NUR ---
sitting up in bed eating supper
[2024-07-10 20:30] VITALS: BP_SYST 109
--- NOTE | 2024-07-10 20:30 | NUR ---
Initial shift assessment done- agitated,confused, trying to get out of bed- wants to get up, taken on a walk w/nurse /walker, pt tries to walk fast- unsteady ,, short walk and then back to bed, was cooperative to take night meds, bed alarm on- close to nsg station.
[2024-07-10 21:26] VITALS: BP 109/65; PULSE 79; TEMP 98.1
--- NOTE | 2024-07-11 06:00 | NUR ---
Did get some sleep last night- had a good 4-5 hour stretch of sleep during the night, overall calmer, no agitation this morning.
--- NOTE | 2024-07-11 08:00 | NUR ---
Patient sitting up in bed looking out the door. Alert, but confused. VSS. IV CDI. Denies pain and discomfort. Call light within reach. Bed alarm on
[2024-07-11 08:10] VITALS: BP 125/79; PULSE 64; TEMP 98.3
[2024-07-11 09:00] VITALS: BP_SYST 125
[2024-07-11 13:00] VITALS: BP 90/57; TEMP 97.3
[2024-07-11 15:51] VITALS: BP 107/62; PULSE 72; TEMP 97
--- NOTE | 2024-07-11 17:25 | NUR ---
[facility] was contacted by Elsy at [facility] who requested updates on patient. Elsy stated they believe they can accept patient as they have had him on hospice services before. [facility] contacted , Theresa about the hospice house as an option as he would have a qualifying diagnosis at this time. Elsy at [facility] also stated they would accept Medicaid pending. Theresa did indicate that patient has declined recently. Theresa would like to consider this option and talk with [facility], which [facility]CO facilitated. Theresa followed up with [facility] after touring [facility] and is agreeable to have him discharged there tomorrow. Theresa did express concern about patient graduating potentially in six months and still needing memory care placement. [facility]CO advised [facility] has social work available to assist with this. FCO also advised Dr. Prince, the PCP has accepted to follow and can assist. [facility]CO spoke with Elsy at [facility] to confirm acceptance. Elsy requested transport at 1000 tomorrow. FCO scheduled with [facility] for 1000 tomorrow. FCO discussed transportation with District Manager In [employer] who agreed with patient's dementia and occasional agitation, EMS transport would be safest mode of transportation and if insurance does not cover, the hospital would be billed. Discharge Plan: [facility] tomorrow at 1000
--- NOTE | 2024-07-11 19:00 | NUR ---
PATIENT HAD SMALL BROWN SEMIFORMED BM.
[2024-07-11 21:00] VITALS: BP_SYST 115
--- NOTE | 2024-07-11 21:00 | NUR ---
UPON SHIFT ASSESSMENT, RANJANA WAS AWAKE IN BED AND A&O X 1. HIS SPEECH IS CONFUSED AND INCOMPREHENSIBLE. RANJANA CURRENTLY IS NONCOMBATIVE AND PLEASANT. HE DENIES PAIN AND VS ARE WNL. PRODUCTIVE COUGH NOTED. CALL LIGHT WITHIN REACH.
[2024-07-11 21:31] VITALS: BP 115/87; PULSE 73; TEMP 98.1
--- NOTE | 2024-07-12 01:00 | NUR ---
PATIENT AWAKE A SLIGHTLY AGITATED. EASY TO ORIENT, NOW PLEASANT.
[2024-07-12 07:40] VITALS: BP 106/63; PULSE 102; TEMP 98.9
--- NOTE | 2024-07-12 08:00 | NUR ---
Patient sitting up in bed eating breakfast. Alert, but confused. VSS. IV CDI. Denies pain and discomfort. Call light within reach. Bed alarm on
[2024-07-12] MEDS ORDERED: SEROQUEL 2525 MG/TAB PO (09:09)
[2024-07-12] MEDS ORDERED: SYSTANE 0.4%-0.1 SOL OU (09:10)
[2024-07-12] MEDS ORDERED: ATIVAN 1MG T1 MG/TAB PO (09:10)
[2024-07-12] MEDS ORDERED: ROXANOL 20MG20 MG/ML SL (09:10)
[2024-07-12] MEDS ORDERED: TRANSDERM-0.5 MG/21 TD (09:10)
[2024-07-12] MEDS ORDERED: DULCOLAX S10 MG/SUPP RC (09:10)
--- NOTE | 2024-07-12 09:25 | NUR ---
[facility] confirmed [facility] that patient is scheduled to transfer today. Transport set for 1000. FCO completed EMS tranport documents, gave to RN Raine for completion and signature. Discharge orders and updated clinicals faxed.
[2024-07-12] MEDS ORDERED: LORazepam 1 MG TAB PO ONE (10:00)
--- NOTE | 2024-07-12 10:34 | NUR ---
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 aware. Personal belongings with the patient. Report called to [facility]. No further needs expressed
== END 2024-07-12 10:35 | disposition hospice, inpatient (51) ==
LOC: COL.ER 23:36 → MEDICAL 07-02 01:12
PROVIDERS: Nurse Practitioner; Nurse Practitioner Primary Care; Physician Assistant; ADMIT Internal Medicine
DX: S42.011A Anterior displaced fracture of sternal end of right clavicle, initial encounter for closed fracture (principal); R79.89 Other specified abnormal findings of blood chemistry; D64.9 Anemia, unspecified; F03.911 Unspecified dementia, unspecified severity, with agitation; I10 Essential (primary) hypertension; J44.9 Chronic obstructive pulmonary disease, unspecified; E78.5 Hyperlipidemia, unspecified; F32.A Depression, unspecified; R40.0 Somnolence; W19.XXXA Unspecified fall, initial encounter; Z91.81 History of falling; Y93.9 Activity, unspecified; Y92.9 Unspecified place or not applicable; Z79.899 Other long term (current) drug therapy
CPT/HCPCS: G0378; G0379; J1650; J2359